=== PATIENT | female | born 1990 | race Caucasian/White ===

== ENCOUNTER 2019-01-01 06:26 | Inpatient (IN) | payer MEDICAID ==
[~2019-01-01] VITALS: Ht 160 cm; Wt 70.8 kg
[2019-01-01 06:23] VITALS: Ht 160 cm; Wt 70.8 kg
[2019-01-01 06:39] VITALS: BP 116/67; PULSE 87; RESP 18
[2019-01-01] MEDS ORDERED: PREN-99 PO (06:50)
[2019-01-01] MEDS ORDERED: FER325 PO (06:50)
[2019-01-01] MEDS ORDERED: LACTATED RINGER'S 1,000 ML IV PRN (07:15)
--- NOTE | 2019-01-01 07:23 | TRIAGE ---
OB Triage Datetime Report Generated by CPN: 01/01/2019 07:23 Datetime: 01/01/2019 07:09 Labor Evaluation Frequency: 1-6 Monitor Mode: External Duration (sec)2399: 50-110 Quality: Moderate Pattern: Normal: <= 5 Contractions in 10 Minutes Resting Tone [place]: Relaxed Heart Rate FHR Baseline Rate: 135 Monitor Mode: External US Variability: Minimal - Undetectable to <=5 bpm Accelerations: 15X15 Decelerations: None Category: Category II Datetime: 01/01/2019 06:56 Vaginal Exam Dilatation (cms): 3.0 Effacement (%): 70 Station: -2 Exam By: KATHERINE Figueredo RN Membrane Status: Intact Pool: Negative Nitrazine: Negative Datetime: 01/01/2019 06:43 Time of Arrival: 01/01/2019 06:23 EGA: 38.6 Arrived By: Ambulatory Arrived From: Home Chief Complaint: c/o abdominal pain and leaking brown/red tinged mucus Movement: Present Contractions: Regular Time Contractions Began: 12/31/2018 15:00 Contractions: 3 MINUTES Rupture of Membranes: Unsure Vaginal Bleeding: Normal Show Vaginal Discharge: Present Recent Sexual Intercouse: Denies Abdominal Trauma: Not Applicable Patient Complaints: Contractions; Back Pain Time Provider Notified: 01/01/2019 07:05 Provider Notified: ROBYN Initial Plan: EFM, SVE Datetime: 01/01/2019 06:39 Stage of : OB Triage Assessment Type: Triage Maternal Assessment Level of Consciousness: Fully Conscious DTR's/Clonus: DTRs 2+; No Clonus Headache: Denies Blurred Vision: No Respiratory Effort: Unlabored; Regular Rhythm; Equal Expansion Breath Sounds, Left: Clear and Equal Breath Sounds, Right: Clear and Equal Nausea/Vomiting: Denies RUQ Epigastric Pain: Denies Facial Edema: None Temperature Route: Oral Fall Risk Assessment History of Falling: (0) No Secondary Diagnosis: (0) No Ambulatory Aid: (0) Bedrest/Nurse Assist IV Therapy: (0) No Gait: (0) Normal/Bedrest/Immobile Mental Status: (0) Oriented to Own Ability Fall Score: 0 Fall Risk Score Definition: No Risk: No action required Pain Assessment Pain Scale: 3 Pain Presence: Intermittent Pain Type: Contraction Pain Location: Abdomen; Back Pain Goal: 3 Pain Relief Measures: Comfort Measures Datetime: 01/01/2019 06:37 Monitor Mode: External Monitor Mode: External US Datetime: 01/01/2019 06:36 Stage of : OB Triage
[2019-01-01] MEDS ORDERED: IBUPROFEN 600 MG TAB PO PRN (07:30)
[2019-01-01] MEDS ORDERED: CARBOPROST 250 MCG INJ IM PRN (07:30)
[2019-01-01] MEDS ORDERED: METHYLERGONOVINE 0.2 MG INJ IM PRN (07:30)
[2019-01-01] MEDS ORDERED: LIDOCAINE 1% (MPF) 30 ML INJ INJ PRN (07:30)
[2019-01-01] MEDS ORDERED: OXYTOCIN 30 UNITS/LR 500 ML IV PRN (07:30)
[2019-01-01] MEDS ORDERED: MISOPROSTOL 200 MCG TAB PR PRN (07:30)
[2019-01-01] MEDS ORDERED: BUTORPHANOL 2 MG INJ IV PRN (07:30)
[2019-01-01] MEDS ORDERED: OXYTOCIN 30 UNITS/LR 500 ML IV SCH ×2 (07:30)
[2019-01-01] MEDS: LACTATED RINGER'S 1,000 ML IV SCH ×3 (07:44→22:31)
--- NOTE | 2019-01-01 09:07 | HP ---
Date/Time of Note Date/Time of Note DATE: 01/01/19 TIME: 09:06 OB - History Hx of Present Free Text/Dictation 38+wks GA in early labor : 1 Para: 0 Care: Good Care Ultrasounds: Normal mid trimester US Obstetrical Complications: None Medical Complications: None Past Family/Social History * Past Medical, Surgical, Family and Obstetric Histories reviewed from chart. OB Admission Exam Vital Signs Vital Signs Vital Signs Date Temp Pulse Resp B/P (MAP) Pulse Ox O2 O2 Flow FiO2 Time Delivery Rate 01/01/19 98.5 87 18 116/67 Room Air 06:39 (83) Physical Exam Abdomen: WNL Extremities: Normal Cervical Dilatation: 3cm Effacement: 75% Station: -1 Membranes: Intact Heart Rate: 140's Accelerations: Accelerations Present Decelerations: No Decelerations Varibility: Moderate Contractions on Admission: 6-10 Minutes Apart Last 72 hours Lab Results CBC & BMP 01/01/19 07:25 OB Assessment/Plan Reason for admission: observation Other Assessment: PMH denies PSH Denies Allergy PCN Plan: Expectant Management MAICO CARLSON M.D. Jan 01, 2019 09:07
--- NOTE | 2019-01-02 00:56 | PREAC ---
Date/Time of Note Date/Time of Note DATE: 01/02/19 TIME: 00:55 Anesthesia Eval and Record Evaluation Time Pre-Procedure Interview DATE: 01/02/19 TIME: 00:55 Age 28 Sex female NPO: 8 hrs Preoperative diagnosis intrauterine Planned procedure labor epidural Past Medical History Past Medical History: Includes : : (1), Para: (0), Gestational age: (39) Surgery & Anesthesia Issues No known issue Meds Anticoagulation: No Beta Benny within 24 hr: No Reason Beta Benny not given: Pt. not on B-Benny Reported Medications Ferrous Sulfate* (Ferrous Sulfate*) 325 Mg Tabec, 325 MG PO DAILY, TAB 01/01/19 Vit #76/Iron,Carb/FA (Pnv 29-1 Tablet) 1 Each Tablet, 1 EACH PO, TAB 01/01/19 Current Medications Lactated Ringer's 1,000 ml @ 125 mls/hr Q8H IV Last administered on 01/01/19at 22:31; Admin Dose 125 MLS/HR; Start 01/01/19 at 07:15 Butorphanol Tartrate (Stadol) 2 mg Q2H PRN IV .PAIN SCALE 6-10; Start 01/01/19 at 07:30 Lidocaine (Xylocaine 1% (Mpf)) 30 ml ONCE PRN INJ .EPISIOTOMY; Start 01/01/19 at 07:30 Oxytocin/Lactated Ringer's 500 ml @ 500 mls/hr ONCE POST IV ; Start 01/01/19 at 07:30 Oxytocin/Lactated Ringer's 500 ml @ 125 mls/hr POST IV ; Start 01/01/19 at 07:30 Ibuprofen (Motrin) 600 mg ONCE PRN PO .PAIN 1-5; Start 01/01/19 at 07:30 Lactated Ringer's 1,000 ml @ 2,000 mls/hr Q30M PRN IV .ANESTHESIA; Start 01/01/19 at 07:15 Oxytocin/Lactated Ringer's 500 ml @ 0 mls/hr ONCE PRN IV .VAGINAL BLEEDING; Start 01/01/19 at 07:30 Methylergonovine Maleate (Methergine) 0.2 mg ONCE PRN IM .VAGINAL BLEEDING; Start 01/01/19 at 07:30 Carboprost Tromethamine (Hemabate) 250 mcg ONCE PRN IM .VAGINAL BLEEDING; Start 01/01/19 at 07:30 Misoprostol (Cytotec) 1,000 mcg ONCE PRN AL .VAGINAL BLEEDING; Start 01/01/19 at 07:30 Meds reviewed: Yes Allergies Coded Allergies: Penicillins (Verified Allergy, Intermediate, HIVES AND RASH, 01/01/19) amoxicillin (Verified Allergy, Intermediate, HIVES AND RASH, 01/01/19) Allergies Reviewed: Yes Labs/Studies Labs Reviewed: Reviewed by anesthesiologist Result Diagram: 01/01/19 0725 Laboratory Tests 01/01/19 07:25 Blood Bank Test 01/01/19 07:25 Antibody Screen NEGATIVE Blood Type A POSITIVE Rh Immune Globulin Candidate NO test: N/A Pre-procedure Exam Last vitals Vital Signs Date Temp Pulse Resp B/P (MAP) Pulse Ox O2 O2 Flow FiO2 Time Delivery Rate 01/01/19 98.5 87 18 116/67 Room Air 06:39 (83) Airway: Adequate mouth opening, Adequate thyromental dist Mallampati: Mallampati II Teeth: Normal Lung: Normal Heart: Normal ASA Physical Status ASA physical status: 2 Emergency: None Planned Anesthetic Neuraxial: Epidural Planned Pain Management Epidural, Parenteral pain med Pre-operative Attestations Prior to commencing anesthesia and surgery, the patient was re-evaluated, there was verification of: *The patient's identity *The results of appropriate recent lab work and preoperative vital signs *The above evaluation not changing prior to induction *Anesthetic plan, risk benefits, alternative and complications discussed with patient/family; questions answered; patient/family understands, accepts and wishes to proceed. ADRIAN ZHOU MD Jan 02, 2019 00:56
[2019-01-02] MEDS ORDERED: FENTAnyl 2MCG/ML-ROPIV 0.2% 100 ML ONE (00:58)
[2019-01-02] MEDS: LACTATED RINGER'S 1,000 ML IV SCH ×4 (01:11→18:35)
--- NOTE | 2019-01-02 01:38 | PAC ---
Date/Time of Note Date/Time of Note DATE: 01/02/19 TIME: 01:38 Post-Anesthesia Notes Post-Anesthesia Note Last documented vital signs Vital Signs Date Temp Pulse Resp B/P (MAP) Pulse Ox O2 O2 Flow FiO2 Time Delivery Rate 01/01/19 98.5 87 18 116/67 Room Air 06:39 (83) Activity: WNL Respiratory function: WNL Cardiovascular function: WNL Mental status: Baseline Pain reasonably controlled: Yes Hydration appropriate: Yes Nausea/Vomiting absent: Yes Comments BP: 102/60 HR: 97 RR: 16 T: 98 SaO2: 100% ADRIAN ZHOU MD Jan 02, 2019 01:38
[2019-01-02] MEDS ORDERED: DIPHENHYDRAMINE 50 MG INJ IV PRN (02:00)
[2019-01-02] MEDS ORDERED: ONDANSETRON 4 MG INJ IV PRN (02:00)
[2019-01-02] MEDS ORDERED: NALOXONE (0.4 MG/ML) INJ IV PRN (02:00)
[2019-01-02] MEDS: FENTAnyl 2MCG/ML-ROPIV 0.2% 100 ML BAG EPI SCH ×3 (04:00→16:53)
[2019-01-02] MEDS ORDERED: OXYTOCIN 30 UNITS/LR 500 ML IV PRN ×2 (08:30→23:30)
[2019-01-02] MEDS ORDERED: MINERAL OIL LIGHT 10 ML VIAL TOP ONE (23:00)
[2019-01-02] MEDS: LACTATED RINGER'S 1,000 ML IV* SCH (23:13)
--- NOTE | 2019-01-02 23:13 | LDN ---
Date/Time of Note Date/Time of Note DATE: 01/02/19 TIME: 23:10 Delivery Summary of a viable baby girl weighing 3630 grams or 8#, 20.75" long, and with Apgars of 6/8/9/9/9. There was some meconium at delivery and the baby had a double nuchal cord. Weeks of Gestation 39w Placenta Delivered: Spontaneously Meconium: Light Episiotomy: No Perineal laceration: 1 Laceration repair: 1st degree perineal laceration and a left 1st degree vaginal laceration both repaired with 3-0 chromic. Anesthesia type: Epidural Estimated blood loss: 200 Sponge & Needle done & correct: Yes All needle counts correct: Yes Any foreign bodies felt in the: No (vagina) Infant Delivery Information Sex Sex: female Apgars 1 Minute: 6 5 Minute: 8 10 Minute: 9 Suctioning Nose & mouth suctioned at erica: Yes Delee suction performed: Yes Umbilical Cord Umbilical cord with: 3 Vessels Cord presentations: nuchal cord Nuchal cord present X: 2 Cord Blood was obtained: Yes Mother & Baby Disposition Disposition Mom & Baby to Maternity; Good: Yes Baby to NICU: No FRIEDA STANLEY MD Jan 02, 2019 23:13
[2019-01-02] MEDS ORDERED: METHYLERGONOVINE 0.2 MG INJ IM PRN (23:30)
[2019-01-02] MEDS ORDERED: MISOPROSTOL 200 MCG TAB PR PRN (23:30)
[2019-01-02] MEDS ORDERED: CARBOPROST 250 MCG INJ IM PRN (23:30)
[2019-01-02] MEDS ORDERED: HYDROCODONE/APAP (5/325) TAB PO PRN (23:30)
[2019-01-03 01:15] VITALS: BP 129/72; PULSE 70; RESP 19
[2019-01-03] MEDS: IBUPROFEN 600 MG TAB PO SCH ×4 (01:23→19:32)
[2019-01-03] MEDS: WITCH HAZEL/GLYCERIN PAD PR PRN (01:23)
[2019-01-03] MEDS: BENZOCAINE 20% 56 ML SPRAY TOP PRN (01:24)
[2019-01-03] MEDS: LANOLIN HPA 1 PKT TOP PRN ×2 (01:25→11:53)
[2019-01-03] MEDS: OXYTOCIN 30 UNITS/LR 500 ML IV SCH ×2 (02:47→09:13)
[2019-01-03 04:00] VITALS: BP 105/59; PULSE 81; RESP 18
[2019-01-03] MEDS: LACTATED RINGER'S 1,000 ML IV* SCH ×3 (07:13→20:56)
[2019-01-03 08:00] VITALS: BP 97/52; PULSE 76; RESP 18
--- NOTE | 2019-01-03 11:24 | QN ---
Documentation Comment PPD#1 is stable afebrile tolerates diet No VB +BM +voids Vs stable Gen NAD Abd soft NT ND Genitalia No blood at perineum --->CBC Tomorrow --->Discharge plan tomorrow MAICO CARLSON M.D. Jan 03, 2019 11:24
[2019-01-03 12:35] VITALS: BP 98/57; PULSE 78; RESP 18
[2019-01-03 16:47] VITALS: BP 106/55; PULSE 83; RESP 18
[2019-01-03 20:00] VITALS: BP 105/58; PULSE 92; RESP 18
[2019-01-04] MEDS: IBUPROFEN 600 MG TAB PO SCH ×3 (00:40→12:00)
[2019-01-04 03:47] VITALS: BP 96/55; PULSE 80; RESP 17
[2019-01-04] MEDS: LACTATED RINGER'S 1,000 ML IV* SCH (06:27)
[2019-01-04 08:45] VITALS: BP 101/63; PULSE 84; RESP 18
[2019-01-04] MEDS ORDERED: DIPHTH/TET/ACEL PERTUSS (ADULT) 0.5 ML VIAL IM* ONE (09:00)
[2019-01-04] MEDS: BENZOCAINE 20% 56 ML SPRAY TOP PRN (10:14)
[2019-01-04] MEDS: WITCH HAZEL/GLYCERIN PAD PR PRN (10:14)
--- NOTE | 2019-01-05 16:45 | DELSUM ---
Delivery Summary A-C Datetime Report Generated by CPN: 01/05/2019 16:44 DELIVERY PERSONNEL T[employer] Bagger: Kuldip, Sheela MATERNAL INFORMATION Delivery Anesthesia: Epidural Medications in Delivery: PITOCIN 30 UNITS Delivery QBL (ml): 200 Placenta Cultured: No Maternal Complications: None LABOR SUMMARY EDC: 01/09/2019 00:00 No. Babies in Womb: 1 Attempted: No Labor Anesthesia: Epidural LABOR INFORMATION Reason for Induction: Not Applicable Onset of Labor: 01/01/2019 06:56 Complete Dilatation: 01/02/2019 19:53 Oxytocin: Augmentation Group B Beta Strep: Negative Antibiotics # of Doses: 0 Steroids Given: None Reason Steroids Not Administered: Not Applicable MEMBRANES Membranes Rupture Method: Spontaneous Rupture of Membranes: 01/02/2019 06:32 Length of Rupture (hr): 15.85 Amniotic Fluid Color: Light Meconium Amniotic Fluid Amount: Moderate Amniotic Fluid Odor: None STAGES OF LABOR Stage 1 hr: 36 Stage 1 min: 57 Stage 2 hr: 2 Stage 2 min: 30 Stage 3 hr: 0 Stage 3 min: 3 Total Time in Labor hr: 39 Total Time in Labor min: 30 VAGINAL DELIVERY Episiotomy: None Laceration Extension: First Degree Laceration Type: Perineal; Vaginal Laceration Repair: Yes Initial Vag Sponge Count: 10 Final Vag Sponge Count: 10 Initial Vag Sharps Count: 1 Final Vag Sharps Count: 2 Sponge Count Correct: Yes; Vaginal Sweep Performed Sharps Count Correct: Yes BABY A INFORMATION Infant Delivery Date/Time: 01/02/2019 22:23 Method of Delivery: Vaginal Born in Route : No : N/A Forceps: N/A Vacuum Extraction: N/A Shoulder Dystocia : N/A SHOULDER DYSTOCIA BABY A Infant Delivery Date/Time: 01/02/2019 22:23 PRESENTATION/POSITION BABY A Presentation: Cephalic Cephalic Presentation: Vertex Vertex Position: Left Occipital Anterior Breech Presentation: N/A PLACENTA INFORMATION BABY A Placenta Delivery Time : 01/02/2019 22:26 Placenta Method of Delivery: Spontaneous Placenta Status: Delivered SCORES BABY A Heart Rate 1 min: >100 bpm Resp Effort 1 min: Good Cry Reflex Irritability 1 min: Cough/Sneeze/Pulls Away Muscle Tone 1 min: Flaccid Color 1 min: Blue/Pale Resuscitation Effort 1 min: Tactile Stimulation; Oxygen SCORE 1 MIN: 6 Heart Rate 5 min: >100 bpm Resp Effort 5 min: Good Cry Reflex Irritability 5 min: Cough/Sneeze/Pulls Away Muscle Tone 5 min: Some Flexion of Extrem Color 5 min: Body [place], Extremit Blue Resuscitation Effort 5 min: Tactile Stimulation; Oxygen SCORE 5 MIN: 8 Heart Rate 10 min: >100 bpm Resp Effort 10 min: Good Cry Reflex Irritability 10 min: Cough/Sneeze/Pulls Away Muscle Tone 10 min: Active Motion Color 10 min: Body [place], Extremit Blue Resuscitation Effort 10 min: Tactile Stimulation SCORE 10 MIN: 9 Heart Rate 15 min: >100 bpm Resp Effort 15 min: Good Cry Reflex Irritability 15 min: Cough/Sneeze/Pulls Away Muscle Tone 15 min: Active Motion Color 15 min: Body [place], Extremit Blue Resuscitation Effort 15 min: Tactile Stimulation SCORE 15 MIN: 9 Heart Rate 20 min: >100 bpm Resp Effort 20 min: Good Cry Reflex Irritability 20 min: Cough/Sneeze/Pulls Away Muscle Tone 20 min: Active Motion Color 20 min: Body [place], Extremit Blue Resuscitation Effort 20 min: N/A SCORE 20 MIN: 9 INFANT INFORMATION BABY A Gestational Age at Delivery: 39.0 Gestational Status: Full Term- 39- 40.6 Weeks Infant Outcome : Liveborn Condition : Stable Infant Sex: Female IDENTIFICATION/MEDS BABY A ID Band Number: [id number] ID Band Location: Right Leg; Left Arm Sensor Number: [id number] Vitamin K Given : Not Given Erythromycin Given: Not Given WEIGHT/LENGTH BABY A Birthweight (gm): 3630 Infant Weight (lb): 8 Weight (oz): 0 Infant Length (in): 20.75 Length (cm): 52.71 CORD INFORMATION BABY A No. Cord Vessels: 3 Nuchal Cord : Around Neck x2, Tight Cord Blood Taken: Yes Infant Suction: Mouth; Nose ASSESSMENT BABY A Infant Complications: Meconium; None Physical Findings at Delivery: Caput Succedaneum; Molding of the Head; Bruising Respirations: Intercostal Retractions; Nasal Flaring Lubrication Equipment Servicer/ALS Called : Yes Infant Care By: larissa ramos rn Transferred To: Remains with Mother
== END 2019-01-04 15:15 | disposition home or self-care (01) | DRG 807 ==
LOC: OBT 06:26 → L-D 06:28 → OBT 07:05 → PP1 01-03 00:56
PROVIDERS: ADMIT Obstetrics & Gynecology; ATTEND Obstetrics & Gynecology
PROC: 10E0XZZ Delivery of Products of Conception, External Approach (ICD-10-PCS; principal; 2019-01-02)
PROC: 0HQ9XZZ Repair Perineum Skin, External Approach (ICD-10-PCS; 2019-01-02)
PROC: 0UQGXZZ Repair Vagina, External Approach (ICD-10-PCS; 2019-01-02)
DX: O70.0 First degree perineal laceration during delivery (principal); O69.81X0 Labor and delivery complicated by cord around neck, without compression, not applicable or unspecified; Z37.0 Single live birth; Z3A.39 39 weeks gestation of pregnancy
CPT/HCPCS: 62322; 76815; 85025; 85610; 85730; 86592; 86850; 86900; 86901; 87340; 99464; G0463; J2590; J3010; J7120